=== PATIENT | male | born 1985 | race Caucasian/White ===

== ENCOUNTER 2016-08-01 12:48 | Emergency (ER) | payer SELFPAY ==
[~2016-08-01 12:48] MED LIST: SERO300T PO
[2016-08-01 12:51] VITALS: BP 111/76; PULSE 100; RESP 16; TEMP 97.8; O2SAT 96
[2016-08-01] MEDS ORDERED: QUET1TAB9 PO ×2 (14:03→14:09)
--- NOTE | 2016-08-01 14:07 | PD ---
HPI Chief Complaint: Medication Refill Request Time Seen by Provider: 14:04 Travel History International Travel<30 days: No Contact w/Intl Traveler<30days: No Traveled to known affect area: No History of Present Illness HPI 31-year-old male presents the emergency department requesting refill of his Seroquel. Patient has been out of his nose for 2 weeks. He attempted to get an appointment at [facility] where he usually gets it but they are unable see him for another month. Patient denies suicidal or homicidal ideation. Is having generalized malaise, nausea, and anxiety. He has no other complaints. He has no known drug allergies. PFSH Past Surgical History Other Surgery: Yes (R THUMB) Social History Alcohol Use: Yes (BEER OCCASIONALLY) Tobacco Use: Yes (1/2 PPD) Substance Use: No Allergies-Medications (Allergen,Severity, Reaction): Coded Allergies: No Known Allergies (Verified , 09/13/13) Reported Meds & Prescriptions Reported Meds & Active Scripts Active Quetiapine (Quetiapine Fumarate) 200 Mg Tab 200 Mg PO HS Reported Seroquel 300 mg (Quetiapine Fumarate) 300 Mg Tab 300 Mg PO HS Review of Systems Except as stated in HPI: all other systems reviewed are Neg General / Constitutional: No: Fever Eyes: No: Visual changes HENT: Positive: Headaches Cardiovascular: No: Chest Pain or Discomfort Respiratory: No: Shortness of Breath Gastrointestinal: Positive: Nausea, No: Abdominal Pain Genitourinary: No: Dysuria Musculoskeletal: Positive: Myalgias, No: Pain Skin: No Rash Neurologic: No: Weakness Psychiatric: No: Depression Endocrine: No: Polydipsia Hematologic/Lymphatic: No: Easy Bruising Physical Exam Narrative GENERAL: Patient appears in no acute distress. SKIN: Warm and dry. Normal color. Normal turgor. HEAD: Atraumatic. Normocephalic. EYES: Pupils equal and round. No scleral icterus. No injection or drainage. ENT: No nasal bleeding or discharge. Mucous membranes pink and moist. Pharynx is normal. NECK: Trachea midline. No JVD. CARDIOVASCULAR: Regular rate and rhythm. RESPIRATORY: No accessory muscle use. Clear to auscultation. Breath sounds equal bilaterally. GASTROINTESTINAL: Abdomen soft, non-tender, nondistended. Hepatic and splenic margins not palpable. MUSCULOSKELETAL: Extremities without clubbing, cyanosis, or edema. No obvious deformities. NEUROLOGICAL: Awake and alert. No obvious cranial nerve deficits. Motor grossly within normal limits. Five out of 5 muscle strength in the arms and legs. Normal speech. PSYCHIATRIC: Appropriate mood and affect; insight and judgment normal. Data Data Last Documented VS Vital Signs Date Time Temp Pulse Resp B/P Pulse Ox O2 Delivery O2 Flow Rate FiO2 08/01/16 12:51 97.8 100 16 111/76 96 Room Air MDM Medical Decision Making Medical Screen Exam Complete: Yes Emergency Medical Condition: Yes Differential Diagnosis Depression. Requesting medication refill. Work note. Narrative Course Patient is medically stable at time of exam. Patient is given a refill of Seroquel 200 mg at bedtime #30 with 2 refills. Patient follow-up with [facility] as discussed. Diagnosis Primary Impression: Medication refill Referrals: [facility] Patient Instructions: General Instructions Additional Instructions: Patient is given a refill of Seroquel 200 mg at bedtime #30 with 2 refills. Patient follow-up with [facility] as discussed. Scripts Quetiapine 200 Mg [id number] Mg PO HS #30 TAB Ref 2 Prov:Radhames Gonzalez MD 08/01/16 Disposition: 01 DISCHARGE HOME Condition: Stable Baldev Márquez Aug 01, 2016 14:07
== END 2016-08-01 14:28 | disposition home or self-care (01) ==
LOC: NEPB 12:48
DX: Z76.0 Encounter for issue of repeat prescription (principal); F41.9 Anxiety disorder, unspecified; R53.81 Other malaise; F17.210 Nicotine dependence, cigarettes, uncomplicated
CPT/HCPCS: 99281